=== PATIENT | female | born 1985 | race African-American/Black ===

== ENCOUNTER 2016-05-19 06:44 | Emergency (ER) | payer OTHER ==
[~2016-05-19 06:44] MED LIST: ACET50TA PO; COLA50CA3 PO; IBUP80TA PO; LANOOIN21 TOP; PRENTAB66 PO
--- NOTE | 2016-05-19 07:54 | EDDOCDS ---
Nurse's Notes [facility] Name: Yvette Campbell Age: 31 yrs Sex: Female : 1985 Arrival Date: 05/19/2016 Time: 06:44 Bed Triage 2 Private MD: Diagnosis: Strain of muscle and tendon of back wall of thorax-affecting right side Presentation: 05/19 06:57 Presenting complaint: Patient states: pt reports right upper back pain, starting 2-3 mlc days ago. pt reports sharp pain when taking deep breath. Acute neurological deficits are not present. Mechanism of Injury: No Mechanism of Injury. Adult Sepsis Screening: The patient does not have new or worsening altered mentation. Patient's respiratory rate is less than 22. Systolic blood pressure is greater than 100. Patient has a qSOFA score of 0- Negative Sepsis Screen. Suicide/Homicide risk assessment- the patient denies having any suicidal and/or homicidal ideations and does not present with any other emotional, behavioral or mental health complaints. 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 Transition of care: patient was not received from another setting of care. 06:57 Acuity: JIMENA Level 3 [facility] [place] 06:57 Method Of Arrival: Walkin/Carried/Asstd [facility] [place] Triage Assessment: 07:00 General: Appears in no apparent distress, comfortable, Behavior is cooperative. Pain: mlc Location: right trapezius, right scapular area and right subscapular area Pain currently is 8 out of 10 on a pain scale. HIV screening NA for this visit Offered previously. The patient is triaged at the bedside. See Assessment in Nurses Notes section of ED record. Neurological: Level of Consciousness is awake, alert, Oriented to person, place, time. Respiratory: Airway is patent Respiratory effort is even, unlabored, Respiratory pattern is regular. Derm: Skin is normal. Musculoskeletal: Circulation, motion, and sensation intact. 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 Vitamin Oral tab 1 tab once daily - PMHx: Heart Murmur; - PSHx: none; - Social history: Smoking status: Patient states former smoker of tobacco. No barriers to communication noted, The patient speaks fluent Japanese. - Family history: Not pertinent. - : The pt / caregiver states he / she is not on anticoagulants. Home medication list is obtained from the patient. - Exposure Risk Screening:: None identified. Screenin:03 Screening information is obtained from the patient. Fall risk: No risks identified. mlc Assistance ADL's: requires no assistance with activities of daily living. Abuse/DV Screen: The patient / caregiver reports he/she is: not in a situation that causes fear, pain or injury. Nutritional screening: No deficits noted. Advance Directives: There is no Power of Service Center Coordinator. home support is adequate. Assessment: 07:40 General: Appears in no apparent distress, Behavior is appropriate for age, cooperative. srm Neurological: No deficits noted. EENT: No deficits noted. Respiratory: No deficits noted. GI: No deficits noted. Vital Signs: 07:00 BP 142 / 81; Pulse 92; Resp 20; Temp 97.3; Pulse Ox 98% ; Weight 120.2 kg; Height 5 ft. mlc 10 in. (177.80 cm); Pain 8/10; 07:00 Body Mass Index 38.02 (120.20 kg, 177.80 cm) mlc Vitals: 07:00 Log In Time: May 19, 2016 at 06:46. [facility] [place] 07:17 Heart Tones 143BPM. [facility] ED Course: 06:45 Patient visited by Chuyita Araujo Reg. hs2 06:45 Patient moved to Waiting hs2 06:57 Patient moved to Triage 2 mlc 06:59 Triage Initiated mlc 07:04 Patient visited by Nancy Barber RN. [facility] 07:17 Urine Culture Sent. srm 07:17 Urinalysis Sent. srm 07:20 Hillary Bonds PA-C is PHCP. dt4 07:20 Gayatri Huizar MD is Attending Physician. dt4 07:21 Patient visited by Hillary Bonds PA-C. dt4 07:40 The patient / caregiver is instructed regarding the plan of care and ED course. Patient srm has correct armband on for positive identification. 07:40 No IV's were initiated during this patient's visit. No procedures done that require srm assistance. 07:50 Patient name changed from Yvette\S\\S\Jaring\S\ to Yvette\S\M\S\Jaring. EDMS 07:51 [facility] [place] Payment Agreement was scanned into [employer] and attached to record. lg Order Results: Lab Order: Urinalysis; SPEC'M 05/19/16 07:12 Test: APPEARANCE, URINE; Value: CLEAR; Range: CLEAR; Status: F Test: COLOR, URINE; Value: YELLOW; Range: YELLOW; Status: F Test: PH,URINE; Value: 6.0; Range: 5.0-9.0; Units: UNITS; Status: F Test: SPECIFIC GRAVITY URINE AUTO; Value: 1.014; Range: 1.002-1.035; Status: F Test: PROTEIN, URINE AUTO; Value: NEGATIVE; Range: NEGATIVE; Units: mg/dL; Status: F Test: GLUCOSE, URINE (UA) AUTO; Value: NEGATIVE; Range: NEGATIVE; Units: mg/dL; Status: F Test: KETONE, URINE AUTO; Value: NEGATIVE; Range: NEGATIVE; Units: mg/dL; Status: F Test: UROBILINOGEN, URINE AUTO; Value: 0.2; Range: 0.0-2.0; Units: mg/dL; Status: F Test: BILIRUBIN, URINE AUTO; Value: NEGATIVE; Range: NEGATIVE; Status: F Test: NITRITE, URINE AUTO; Value: NEGATIVE; Range: NEGATIVE; Status: F Test: LEUKOCYTE ESTERASE, URINE AUTO; Value: NEGATIVE; Range: NEGATIVE; Status: F Test: BLOOD, URINE BLOOD; Value: NEGATIVE; Range: NEGATIVE; Status: F Test: WBC, URINE AUTO; Value: 1; Range: 0-3; Units: /HPF; Status: F Test: RBC, URINE AUTO; Value: 0; Range: 0-3; Units: /HPF; Status: F Test: BACTERIA, URINE AUTO; Value: NEGATIVE; Range: NEGATIVE; Status: F Test: SQUAMOUS EPITHELIAL CELL UR AU; Value: 1; Range: 0-6; Units: /HPF; Status: F Test: MUCUS, URINE; Value: SMALL; Range: NEGATIVE; Status: F Test: HYALINE CAST, URINE AUTO; Value: 0; Range: 0-1; Units: /LPF; Status: F Outcome: 07:37 Discharge ordered by Provider. dt4 07:40 Discharge Assessment: Patient awake, alert and oriented x 3. No cognitive and/or srm functional deficits noted. Patient verbalized understanding of disposition instructions. patient administered narcotics - no. The following High Risk Discharge criteria are identified: None. Discharged to home ambulatory. Condition: good Condition: stable. Discharge instructions given to patient, Instructed on discharge instructions, follow up and referral plans. medication usage, Demonstrated understanding of instructions, medications, Pt was receptive of discharge instructions/ teaching. Prescriptions given X 1. No special radiology studies were completed. Property sent home with patient. 07:53 Patient left the ED. srm Signatures: Dispatcher [employer] EDMS Deisy Ordonez, RN RN Winter Beckett, Reg Reg lg Nancy BarberRN RN Hillary Soto, RADHA PA-[place] dt4 Chuyita Araujo, Reg Reg hs2 MTDD
--- NOTE | 2016-05-19 07:54 | EDDOCDS ---
Physician Documentation [facility] Name: Yvette Campbell Age: 31 yrs Sex: Female : 1985 Arrival Date: 05/19/2016 Time: 06:44 Bed Triage 2 Private MD: Disposition: 05/19/16 07:37 Discharged to Home/Self Care. Impression: Strain of muscle and tendon of back wall of thorax - affecting right side. - Condition is Stable. - Discharge Instructions: Muscle Strain. - Prescriptions for Cyclobenzaprine 5 mg Oral Tablet - take 1 tablet by ORAL route at bedtime As needed may cause drowsiness. if not working/driving/operating machinery, make take q8 hours; 15 tablet. - Medication Reconciliation, Local Pharmacy Hours form. - Follow up: Emergency Department; When: As needed; Reason: Worsening of conditions. Follow up: Private Physician; When: 2 - 3 days; Reason: Wound/Symptom Recheck, Recheck today's complaints, Continuance of care. - Problem is new. - Symptoms are unchanged. Historical: - Allergies: No known drug Allergies; - Home Meds: 1. Vitamin Oral tab 1 tab once daily - PMHx: Heart Murmur; - PSHx: none; - Social history: Smoking status: Patient states former smoker of tobacco. No barriers to communication noted, The patient speaks fluent Maltese. - Family history: Not pertinent. - : The pt / caregiver states he / she is not on anticoagulants. Home medication list is obtained from the patient. - Exposure Risk Screening:: None identified. 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 10 in. (177.80 cm); Pain 8/10; 07:00 Body Mass Index 38.02 (120.20 kg, 177.80 cm) mlc MDM: 07:07 Urinalysis Ordered. EDMS 07:07 Urine Culture Ordered. EDMS 07:17 Heart Tones ordered. srm 07:46 Financial registration complete. lg 07:51 [facility] Payment Agreement was scanned into [employer] and attached to record. lg Signatures: Dispatcher [employer] EDMS Deisy Ordonez RN RN srm Ganter, LoriLee, Michael Reg Nancy Barber RN RN mlc Tschudi, Diane, RADHA GARCIA dt4 The chart was reviewed and I authenticate all verbal orders and agree with the evaluation and treatment provided.Attachments: 07:51 [facility] Payment Agreement lg MTDD
--- NOTE | 2016-05-21 08:54 | EDDOCDS ---
Physician Documentation [facility] Name: Yvette Campbell Age: 31 yrs Sex: Female : 1985 Arrival Date: 05/19/2016 Time: 06:44 Bed Triage 2 Private MD: Disposition: 05/19/16 07:37 Discharged to Home/Self Care. Impression: Strain of muscle and tendon of back wall of thorax - affecting right side. - Condition is Stable. - Discharge Instructions: Muscle Strain. - Prescriptions for Cyclobenzaprine 5 mg Oral Tablet - take 1 tablet by ORAL route at bedtime As needed may cause drowsiness. if not working/driving/operating machinery, make take q8 hours; 15 tablet. - Medication Reconciliation, Local Pharmacy Hours form. - Follow up: Emergency Department; When: As needed; Reason: Worsening of conditions. Follow up: Private Physician; When: 2 - 3 days; Reason: Wound/Symptom Recheck, Recheck today's complaints, Continuance of care. - Problem is new. - Symptoms are unchanged. Historical: - Allergies: No known drug Allergies; - Home Meds: 1. Vitamin Oral tab 1 tab once daily - PMHx: Heart Murmur; - PSHx: none; - Social history: Smoking status: Patient states former smoker of tobacco. No barriers to communication noted, The patient speaks fluent Chinese. - Family history: Not pertinent. - : The pt / caregiver states he / she is not on anticoagulants. Home medication list is obtained from the patient. - Exposure Risk Screening:: None identified. 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 10 in. (177.80 cm); Pain 8/10; 07:00 Body Mass Index 38.02 (120.20 kg, 177.80 cm) mlc MDM: 07:07 Urinalysis Ordered. EDMS 07:07 Urine Culture Ordered. EDMS 07:17 Heart Tones ordered. srm 07:46 Financial registration complete. lg 07:51 [facility] Payment Agreement was scanned into [employer] and attached to record. lg 13:25 T-Sheet-- Draft Copy was scanned into [employer] and attached to record. gb Signatures: Dispatcher [employer] Deisy Rollins, RN CHANTAL [facility] Cleo Flores, Reg Reg gb Winter Lopez, Reg Reg lg Nancy Barber RN RN [facility] [place] Hillary Bonds PA-C PA-C dt4 The chart was reviewed and I authenticate all verbal orders and agree with the evaluation and treatment provided.Attachments: 07:51 [facility] Payment Agreement lg 13:25 T-Sheet-- Draft Copy gb Chart Complete MTDD
--- NOTE | 2016-05-21 08:54 | EDDOCDS ---
Nurse's Notes [facility] Name: Yvette Campbell Age: 31 yrs Sex: Female : 1985 Arrival Date: 05/19/2016 Time: 06:44 Bed Triage 2 Private MD: Diagnosis: Strain of muscle and tendon of back wall of thorax-affecting right side Presentation: 05/19 06:57 Presenting complaint: Patient states: pt reports right upper back pain, starting 2-3 mlc days ago. pt reports sharp pain when taking deep breath. Acute neurological deficits are not present. Mechanism of Injury: No Mechanism of Injury. Adult Sepsis Screening: The patient does not have new or worsening altered mentation. Patient's respiratory rate is less than 22. Systolic blood pressure is greater than 100. Patient has a qSOFA score of 0- Negative Sepsis Screen. Suicide/Homicide risk assessment- the patient denies having any suicidal and/or homicidal ideations and does not present with any other emotional, behavioral or mental health complaints. Status: Patient is not a manager support services or dependent. Transition of care: patient was not received from another setting of care. 06:57 Acuity: JIMENA Level 3 [facility] [place] 06:57 Method Of Arrival: Walkin/Carried/Asstd [facility] [place] Triage Assessment: 07:00 General: Appears in no apparent distress, comfortable, Behavior is cooperative. Pain: mlc Location: right trapezius, right scapular area and right subscapular area Pain currently is 8 out of 10 on a pain scale. HIV screening NA for this visit Offered previously. The patient is triaged at the bedside. See Assessment in Nurses Notes section of ED record. Neurological: Level of Consciousness is awake, alert, Oriented to person, place, time. Respiratory: Airway is patent Respiratory effort is even, unlabored, Respiratory pattern is regular. Derm: Skin is normal. Musculoskeletal: Circulation, motion, and sensation intact. 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 Vitamin Oral tab 1 tab once daily - PMHx: Heart Murmur; - PSHx: none; - Social history: Smoking status: Patient states former smoker of tobacco. No barriers to communication noted, The patient speaks fluent Romanian. - Family history: Not pertinent. - : The pt / caregiver states he / she is not on anticoagulants. Home medication list is obtained from the patient. - Exposure Risk Screening:: None identified. Screenin:03 Screening information is obtained from the patient. Fall risk: No risks identified. mlc Assistance ADL's: requires no assistance with activities of daily living. Abuse/DV Screen: The patient / caregiver reports he/she is: not in a situation that causes fear, pain or injury. Nutritional screening: No deficits noted. Advance Directives: There is no Power of Metal Cut Off Saw Tender. home support is adequate. Assessment: 07:40 General: Appears in no apparent distress, Behavior is appropriate for age, cooperative. srm Neurological: No deficits noted. EENT: No deficits noted. Respiratory: No deficits noted. GI: No deficits noted. Vital Signs: 07:00 BP 142 / 81; Pulse 92; Resp 20; Temp 97.3; Pulse Ox 98% ; Weight 120.2 kg; Height 5 ft. mlc 10 in. (177.80 cm); Pain 8/10; 07:00 Body Mass Index 38.02 (120.20 kg, 177.80 cm) mlc Vitals: 07:00 Log In Time: May 19, 2016 at 06:46. [facility] [place] 07:[address] [facility] ED Course: 06:45 Patient visited by Chuyita Araujo Reg. hs2 06:45 Patient moved to Waiting hs2 06:57 Patient moved to Triage 2 mlc 06:59 Triage Initiated mlc 07:04 Patient visited by Nancy Barber RN. [facility] [place] 07:17 Urine Culture Sent. srm 07:17 Urinalysis Sent. srm 07:20 Hillary Bonds PA-C is PHCP. dt4 07:20 Gayatri Huizar MD is Attending Physician. dt4 07:21 Patient visited by Hillary Bonds PA-C. dt4 07:40 The patient / caregiver is instructed regarding the plan of care and ED course. Patient srm has correct armband on for positive identification. 07:40 No IV's were initiated during this patient's visit. No procedures done that require srm assistance. 07:50 Patient name changed from Yvette\S\\S\Jaring\S\ to Yvette\S\M\S\Jaring. EDMS 07:51 [facility] [place] Payment Agreement was scanned into [employer] and attached to record. lg 13:25 T-Sheet-- Draft Copy was scanned into [employer] and attached to record. gb Order Results: Lab Order: Urinalysis; SPEC'M 05/19/16 07:12 Test: APPEARANCE, URINE; Value: CLEAR; Range: CLEAR; Status: F Test: COLOR, URINE; Value: YELLOW; Range: YELLOW; Status: F Test: PH,URINE; Value: 6.0; Range: 5.0-9.0; Units: UNITS; Status: F Test: SPECIFIC GRAVITY URINE AUTO; Value: 1.014; Range: 1.002-1.035; Status: F Test: PROTEIN, URINE AUTO; Value: NEGATIVE; Range: NEGATIVE; Units: mg/dL; Status: F Test: GLUCOSE, URINE (UA) AUTO; Value: NEGATIVE; Range: NEGATIVE; Units: mg/dL; Status: F Test: KETONE, URINE AUTO; Value: NEGATIVE; Range: NEGATIVE; Units: mg/dL; Status: F Test: UROBILINOGEN, URINE AUTO; Value: 0.2; Range: 0.0-2.0; Units: mg/dL; Status: F Test: BILIRUBIN, URINE AUTO; Value: NEGATIVE; Range: NEGATIVE; Status: F Test: NITRITE, URINE AUTO; Value: NEGATIVE; Range: NEGATIVE; Status: F Test: LEUKOCYTE ESTERASE, URINE AUTO; Value: NEGATIVE; Range: NEGATIVE; Status: F Test: BLOOD, URINE BLOOD; Value: NEGATIVE; Range: NEGATIVE; Status: F Test: WBC, URINE AUTO; Value: 1; Range: 0-3; Units: /HPF; Status: F Test: RBC, URINE AUTO; Value: 0; Range: 0-3; Units: /HPF; Status: F Test: BACTERIA, URINE AUTO; Value: NEGATIVE; Range: NEGATIVE; Status: F Test: SQUAMOUS EPITHELIAL CELL UR AU; Value: 1; Range: 0-6; Units: /HPF; Status: F Test: MUCUS, URINE; Value: SMALL; Range: NEGATIVE; Status: F Test: HYALINE CAST, URINE AUTO; Value: 0; Range: 0-1; Units: /LPF; Status: F Lab Order: Urine Culture; SPEC'M 05/19/16 07:12 Test: URINE CULTURE; Value: <EXTERNAL COMMENT eCWMed> FULL REPORT IN LAB NOTES (eCW and Medent).; Status: F Test: URINE CULTURE; Value: URINE CULTURE RESULT SPECIMEN APPEARS CONTAMINATED; Status: F Outcome: 07:37 Discharge ordered by Provider. dt4 07:40 Discharge Assessment: Patient awake, alert and oriented x 3. No cognitive and/or srm functional deficits noted. Patient verbalized understanding of disposition instructions. patient administered narcotics - no. The following High Risk Discharge criteria are identified: None. Discharged to home ambulatory. Condition: good Condition: stable. Discharge instructions given to patient, Instructed on discharge instructions, follow up and referral plans. medication usage, Demonstrated understanding of instructions, medications, Pt was receptive of discharge instructions/ teaching. Prescriptions given X 1. No special radiology studies were completed. Property sent home with patient. 07:53 Patient left the ED. srm Signatures: Dispatcher [employer] EDMS Deisy Ordnoez RN RN [facility] Cleo Flores, Reg Reg gb Winter Lopez, Reg Reg lg Nancy Barber RN RN [facility] [place] Hillary Bonds, PAMarcie PA-C dt4 Chuyita Araujo, Reg Reg hs2 Chart Complete MTDD
--- NOTE | 2016-05-21 08:54 | EDDOCDS ---
Physician Documentation [facility] Name: Yvette Campbell Age: 31 yrs Sex: Female : 1985 Arrival Date: 05/19/2016 Time: 06:44 Bed Triage 2 Private MD: Disposition: 05/19/16 07:37 Discharged to Home/Self Care. Impression: Strain of muscle and tendon of back wall of thorax - affecting right side. - Condition is Stable. - Discharge Instructions: Muscle Strain. - Prescriptions for Cyclobenzaprine 5 mg Oral Tablet - take 1 tablet by ORAL route at bedtime As needed may cause drowsiness. if not working/driving/operating machinery, make take q8 hours; 15 tablet. - Medication Reconciliation, Local Pharmacy Hours form. - Follow up: Emergency Department; When: As needed; Reason: Worsening of conditions. Follow up: Private Physician; When: 2 - 3 days; Reason: Wound/Symptom Recheck, Recheck today's complaints, Continuance of care. - Problem is new. - Symptoms are unchanged. Historical: - Allergies: No known drug Allergies; - Home Meds: 1. Vitamin Oral tab 1 tab once daily - PMHx: Heart Murmur; - PSHx: none; - Social history: Smoking status: Patient states former smoker of tobacco. No barriers to communication noted, The patient speaks fluent German. - Family history: Not pertinent. - : The pt / caregiver states he / she is not on anticoagulants. Home medication list is obtained from the patient. - Exposure Risk Screening:: None identified. 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 10 in. (177.80 cm); Pain 8/10; 07:00 Body Mass Index 38.02 (120.20 kg, 177.80 cm) mlc MDM: 07:07 Urinalysis Ordered. EDMS 07:07 Urine Culture Ordered. EDMS 07:17 Heart Tones ordered. srm 07:46 Financial registration complete. lg 07:51 [facility] Payment Agreement was scanned into [employer] and attached to record. lg 13:25 T-Sheet-- Draft Copy was scanned into [employer] and attached to record. gb Signatures: Dispatcher [employer] Deisy Rollins, RN CHANTAL [facility] Cleo Flores, Reg Reg gb Winter Lopez, Reg Reg lg Nancy Barber RN RN [facility] [place] Hillary Bonds PA-C PA-C dt4 The chart was reviewed and I authenticate all verbal orders and agree with the evaluation and treatment provided.Attachments: 07:51 [facility] Payment Agreement lg 13:25 T-Sheet-- Draft Copy gb Chart Complete MTDD
== END 2016-05-19 07:53 | disposition home or self-care (01) ==
LOC: M ED 06:44
DX: O99.89 Other specified diseases and conditions complicating pregnancy, childbirth and the puerperium (principal); S39.012A Strain of muscle, fascia and tendon of lower back, initial encounter; X50.3XXA Overexertion from repetitive movements, initial encounter; Y92.9 Unspecified place or not applicable; Y93.89 Activity, other specified; Y99.9 Unspecified external cause status; Z3A.17 17 weeks gestation of pregnancy; Z87.891 Personal history of nicotine dependence; Z79.899 Other long term (current) drug therapy

== ENCOUNTER → 2016-06-06 | Outpatient (CLI) | payer OTHER ==
--- NOTE | 2016-06-06 14:13 | REP ---
Clinical: Anatomical evaluation. Comparison: None. Findings: Examination demonstrates a single live intrauterine in variable presentation. motion is identified by technologist. Placenta is noted posteriorly and grade zero without evidence for placenta previa or abruption. Amniotic fluid volume is normal. Cervix measures 4.5 cm in length and appears closed. No evidence for nuchal cord. Gestational age by LMP 20 weeks 3 days with VINH 10/21/2016 . Gestational age by current measurements 19 weeks 4 days with VINH 10/27/2016 . FHR equals 139 beats per minute. BPD 4.5 cm 19 weeks 4 days HC 16.3 cm 18 weeks 1 day AC 15.1 cm 20 weeks 2 days FL 3.2 cm 20 weeks 0 days HL 3.2 cm 20 weeks 5 days HC/AC ratio 1.08 Estimated weight 329 grams ( 35th percentile). Anatomical assessment demonstrates normal structures including cranium, choroid plexus, cavum, cerebellum/posterior fossa, facial features, lungs, four-chamber heart/ left ventricular outflow tract, diaphragm, stomach, cord insertion/three-vessel cord, kidneys/bladder, spine, and extremities. Suboptimal evaluation of the facial profile and right cardiac ventricular outflow tract. Impression: Single live intrauterine in variable presentation demonstrating appropriate interval growth. While no gross anatomical abnormalities are identified, limited evaluation of the facial profile and right cardiac ventricular outflow tract are noted. Signed by Viktor Guajardo MD 06/06/2016 02:05 P
== END ==
LOC: M SMT 12:57
PROVIDERS: ATTEND Nurse Practitioner Women's Health
DX: Z36 Encounter for antenatal screening of mother (principal)

== ENCOUNTER → 2016-06-29 | Outpatient (CLI) | payer OTHER ==
--- NOTE | 2016-06-29 16:33 | REP ---
OB ULTRASOUND: Real-time sonographic evaluation of the gravid uterus is performed utilizing transabdominal technique. There is a single living intrauterine gestation. The estimated gestational age is 23 weeks 5 days. EDC 10/21/2016. Today's measurements indicate appropriate growth. BPD 55 mm = 22 weeks 5 days, 25th percentile. HC 204 mm = 22 weeks 4 days, 15th percentile. AC 177 mm = 22 weeks 4 day, 26th percentile. Femur length 42 mm = 23 weeks 6 days, 53rd percentile. HC/AC ratio 1.15 within normal range. Estimated weight 560 grams, 27th percentile. Cervix is closed and measures 4.0 cm in length. heart rate 133 beats per minute. SEEN/GROSSLY UNREMARKABLE Lateral ventricles Yes Posterior fossa Yes Upper lip Yes Four-chamber heart Yes LVOT Yes RVOT Yes Stomach Yes Cord insertion Yes Three vessel cord Yes Kidneys Yes Bladder No Spine Yes position: Vertex. Placenta: Anterior and grade 0 with no previa or abruption. Amniotic fluid: Within normal limits. Signed by Clark Li MD 06/29/2016 04:45 P
== END ==
LOC: M SMT 14:11
PROVIDERS: ATTEND Nurse Practitioner Women's Health
DX: Z36 Encounter for antenatal screening of mother (principal); Z3A.23 23 weeks gestation of pregnancy

== ENCOUNTER → 2018-10-28 | Outpatient (CLI) | payer OTHER ==
[~2018-10-28] MED LIST changes: -ACET50TA PO; +MAPA500T17 PO
--- NOTE | 2018-10-28 21:28 | REP ---
Clinical: Trauma. Puncture wound. Technique: AP, lateral, bilateral oblique views left foot . Findings: The osseous structures and joint spaces are intact and normal. There is no evidence for acute fracture or dislocation. There is a very thin 4 mm foreign body in the soft tissues underlying the third proximal phalanx. Impression: Small foreign body. Electronically Signed by Viktor Guajardo MD 10/28/2018 09:19 P
== END ==
LOC: M WUC 08:24
PROVIDERS: ATTEND Physician Assistant
DX: S91.342A Puncture wound with foreign body, left foot, initial encounter (principal); Y92.9 Unspecified place or not applicable; Y93.9 Activity, unspecified

== ENCOUNTER → 2020-08-25 | Outpatient (CLI) | payer OTHER ==
--- NOTE | 2020-08-26 14:02 | ECHO ---
DATE OF PROCEDURE: 08/25/2020 Age: 35 Gender: Female Height: 71 inches Weight: 260 pounds Body Surface Area: 2.36 m2 PATIENT LOCATION: Outpatient. REFERRING PROVIDER: Lianna Armstrong. INDICATION: Heart murmur. MEASUREMENTS: 2D Measurements: RV 4.0 cm LV 4.8 cm Septum 1.1 cm Posterior wall 1.1 cm Aortic Root 3.0 cm LA 3.5 cm LVEF 65% Doppler Measurements: AV 1.45 m/s LVOT 1.1 m/s LVOT diameter 1.9 cm MV-E 90, A 77, EA ratio 1.2 Early mitral deceleration time 173 msec PV - 0.8 m/s Pulmonary artery acceleration time 130 msec RVSP 32 mmHg IVC 2.0 cm COMMENTS: Normal sinus rhythm without intraventricular conduction disturbance. Somewhat challenging study in light of the patient's body habitus, but diagnostically useful information was still obtained. M-mode and 2-dimensional echocardiography was performed with pulse, continuous wave, color flow, and tissue Doppler studies. Normal left ventricular size, wall thickness, and wall motion. Normal left atrial size and Doppler assessment of LV diastolic function and estimated mean left atrial pressure. Right heart chamber sizes upper limits of normal in size with normal wall motion and Doppler evidence of mild pulmonary hypertension. Normal IVC size and collapse against an elevated central venous pressure. Normal aortic dimensions. Three equal size aortic cusps with normal thickness and cusp separation. No evidence of insufficiency. Normal appearing mitral valvular apparatus and leaflet excursion with no posterior systolic buckling. Very mild insufficiency (physiologic). Normal appearing tricuspid valve with mild to moderate insufficiency. No apparent intracardiac mass or pericardial effusion. MTDD
== END ==
LOC: M CARPUL 10:10
PROVIDERS: ATTEND Nurse Practitioner Family
DX: R01.1 Cardiac murmur, unspecified (principal); I27.20 Pulmonary hypertension, unspecified

== ENCOUNTER → 2020-09-13 | Outpatient (REF) | payer OTHER | LOC: M SFHCWAGY 17:04 | PROVIDERS: ATTEND Nurse Practitioner Women's Health | DX: Z12.4 Encounter for screening for malignant neoplasm of cervix (principal) ==

== ENCOUNTER → 2020-09-14 | Outpatient (CLI) | payer OTHER ==
[2020-09-14 07:01] LABS: BASO % 0.4 % (0.0-1.0); EOS # 0.2 10^3/uL (0.0-0.5); EOS % 2.8 % (0.0-3.0); HEMATOCRIT 37.2 % (36.0-47.0); HEMOGLOBIN 12.3 g/dl (12.0-15.5); LYMPH # 2.1 10^3/uL (1.5-5.0); LYMPH % 28.9 % (24.0-44.0); MEAN CORPUSCULAR HEMOGLOBIN 30.1 pg (27.0-33.0); MEAN CORPUSCULAR HGB CONC 33.1 g/dl (32.0-36.5); MONO # 0.8 10^3/uL (0.0-0.8); MONO % 11.1 % (2.0-8.0); NEUTROPHILS # 4.2 10^3/uL (1.5-8.5); NEUTROPHILS % 56.4 % (36.0-66.0); PLATELET COUNT, AUTOMATED 296 10^3/uL (150-450); RED BLOOD COUNT 4.09 10^6/uL (4.00-5.40); WHITE BLOOD COUNT 7.4 10^3/uL (4.0-10.0)
[2020-09-14 07:21] LABS: HEMOGLOBIN A1c 5.2 %
[2020-09-14 07:36] LABS: ALBUMIN 3.4 GM/DL (3.2-5.2); ALT/SGPT 18 U/L (12-78); BILIRUBIN,TOTAL 0.5 MG/DL (0.2-1.0); BLOOD UREA NITROGEN 16 MG/DL (7-18); CALCIUM LEVEL 8.3 MG/DL (8.5-10.1); CARBON DIOXIDE LEVEL 26 MEQ/L (21-32); CHLORIDE LEVEL 107 MEQ/L (98-107); CHOLESTEROL LEVEL 134 MG/DL (<200); CHOLESTEROL RISK RATIO 3.045 (<5); CREATININE FOR GFR 0.63 MG/DL (0.55-1.30); GLOMERULAR FILTRATION RATE > 60.0 (>60); GLUCOSE, FASTING 91 MG/DL (70-100); HDL CHOLESTEROL 44 MG/DL (>40); LDL CHOLESTEROL 69 MG/DL (<100); NON-HDL-C 90 MG/DL; POTASSIUM SERUM 4.2 MEQ/L (3.5-5.1); SODIUM LEVEL 140 MEQ/L (136-145); TOTAL PROTEIN 6.5 GM/DL (6.4-8.2); TRIGLYCERIDES LEVEL 103 MG/DL (<150)
== END ==
LOC: M LAB 06:43
PROVIDERS: ATTEND Nurse Practitioner Family
DX: Z00.01 Encounter for general adult medical examination with abnormal findings (principal)

== ENCOUNTER → 2022-03-06 | Outpatient (CLI) | payer OTHER | LOC: M PLAIMG 07:20 | PROVIDERS: ATTEND Nurse Practitioner Family | DX: M25.462 Effusion, left knee (principal); M71.22 Synovial cyst of popliteal space [Baker], left knee; M25.552 Pain in left hip ==

== ENCOUNTER → 2023-12-03 | Outpatient (REF) | payer OTHER ==
[~2023-12-03] MED LIST changes: +IBUP200C28 PO
== END ==
LOC: M SMT 10:21
PROVIDERS: ATTEND Physician Assistant
DX: N20.0 Calculus of kidney (principal)

== ENCOUNTER → 2024-01-17 | Outpatient (REF) | payer OTHER ==
[2024-01-21 14:38] LABS: HPV APTIMA Not Detected (Not Detected)
== END ==
LOC: M SFHCWAGY 13:07
PROVIDERS: ATTEND Nurse Practitioner Family
DX: Z12.4 Encounter for screening for malignant neoplasm of cervix (principal)

== ENCOUNTER → 2024-01-17 | Outpatient (CLI) | payer OTHER | LOC: M WHC 10:36 | PROVIDERS: ATTEND Nurse Practitioner Family | DX: Z12.31 Encounter for screening mammogram for malignant neoplasm of breast (principal) ==

== ENCOUNTER → 2024-07-10 | Outpatient (CLI) | payer OTHER | LOC: M RAD 09:45 | PROVIDERS: ATTEND Physician Assistant | DX: R93.3 Abnormal findings on diagnostic imaging of other parts of digestive tract (principal) ==

== ENCOUNTER → 2025-01-20 | Outpatient (CLI) | payer OTHER | LOC: M WHC 15:02 | PROVIDERS: ATTEND Nurse Practitioner Family | DX: Z12.31 Encounter for screening mammogram for malignant neoplasm of breast (principal) ==

== ENCOUNTER → 2025-02-09 | Outpatient (CLI) | payer OTHER ==
[2025-02-09 10:42] LABS: BASO # 0.1 10^3/uL (0.0-0.2); BASO % 1.0 % (0.0-1.0); EOS # 0.3 10^3/uL (0.0-0.5); EOS % 4.2 % (0.0-3.0); LYMPH # 1.7 10^3/uL (1.5-5.0); LYMPH % 27.0 % (24.0-44.0); MONO # 0.7 10^3/uL (0.0-0.8); MONO % 10.9 % (2.0-8.0); NEUTROPHILS # 3.5 10^3/uL (1.5-8.5); NEUTROPHILS % 56.6 % (36.0-66.0); PLATELET COUNT, AUTOMATED 277 10^3/uL (150-450)
[2025-02-09 11:02] LABS: ALT/SGPT 20 U/L (7.0-40); AST/SGOT 17 U/L (<34); CALCIUM LEVEL 8.9 MG/DL (8.5-10.1); CARBON DIOXIDE LEVEL 28 MMOL/L (20-31); CHLORIDE LEVEL 108 MMOL/L (98-107); CHOLESTEROL LEVEL 135 MG/DL (<200); CHOLESTEROL RISK RATIO 3.12 (<5); CREATININE FOR GFR 0.79 MG/DL (0.55-1.30); GLOMERULAR FILTRATION RATE > 90.0 (>58); IRON (FE) 106 UG/DL (50-170); LDL CHOLESTEROL 79.0 MG/DL (<100); NON-HDL-C 91.8 MG/DL; PERCENT SATURATION 33.8 % (13.2-45.0); POTASSIUM SERUM 4.7 MMOL/L (3.5-5.1); SODIUM LEVEL 143 MMOL/L (136-145); TRIGLYCERIDES LEVEL 64 MG/DL (<150)
[2025-02-09 11:04] LABS: VITAMIN B12 LEVEL 437 PG/ML (211-911)
== END ==
LOC: M LAB 09:03
PROVIDERS: ATTEND Physician Assistant
DX: D22.9 Melanocytic nevi, unspecified (principal)

== ENCOUNTER → 2025-02-18 | Outpatient (CLI) | payer OTHER | LOC: M RAD 08:09 | PROVIDERS: ATTEND Physician Assistant | DX: R93.3 Abnormal findings on diagnostic imaging of other parts of digestive tract (principal); K76.0 Fatty (change of) liver, not elsewhere classified ==

== ENCOUNTER 2025-04-08 08:43 | Day surgery (SDC) | payer OTHER ==
[~2025-04-08] VITALS: Ht 177.8 cm; Wt 111.6 kg
[2025-04-08 10:05] VITALS: TEMP 97.4
[2025-04-08 10:18] VITALS: BP 111/67; O2SAT 100
== END 2025-04-08 10:31 | disposition home or self-care (01) ==
LOC: M OPP 08:43
PROVIDERS: ATTEND Surgery
DX: Z12.11 Encounter for screening for malignant neoplasm of colon (principal); K64.0 First degree hemorrhoids; Z88.8 Allergy status to other drugs, medicaments and biological substances; Z91.013 Allergy to seafood; Z91.018 Allergy to other foods; Z91.040 Latex allergy status; Z79.899 Other long term (current) drug therapy; J45.909 Unspecified asthma, uncomplicated